=== PATIENT | female | born 1955 ===

== ENCOUNTER 2018-03-11 14:49 | Emergency (ER) | payer SELFPAY ==
[2018-03-11 14:50] VITALS: BMI 34.2
[2018-03-11 14:57] VITALS: RESP 16
[2018-03-11] MEDS ORDERED: Albuterol-Ipratrop 3 mg / 0.5 (3 ml) UD INH STA ×2 (15:29→17:44)
[2018-03-11] MEDS ORDERED: Metoprolol 1 mg/ml Inj IVP STA (15:41)
[2018-03-11 15:53] LABS: BASO # 0.1 K/uL (0.0-0.2); BASO % 0.9 % (0.0-2.0); EOS # 0.2 K/uL (0.0-0.7); EOS % 2.5 % (0.0-4.0); HEMOGLOBIN 14.8 g/dL (12.0-16.0); LYMPH # 1.9 K/uL (1.0-4.3); LYMPH % 27.2 % (20.0-40.0); MEAN CELL VOLUME 87.7 fl (81.0-99.0); MEAN CORPUSCULAR HEMOGLOBIN 30.5 pg (27.0-31.0); MEAN CORPUSCULAR HGB CONC 34.8 g/dL (33.0-37.0); MEAN PLATELET VOLUME 7.9 fl (7.2-11.7); MONO # 0.5 K/uL (0.0-0.8); MONO % 7.5 % (0.0-10.0); NEUT # 4.3 K/uL (1.8-7.0); NEUT % 61.9 % (50.0-75.0); NRBC % 0.1 % (0.0-0.0); RBC 4.84 Mil/uL (3.80-5.20); RED CELL DISTRIBUTION WIDTH 13.4 % (11.5-14.5); WHITE BLOOD COUNT 6.9 K/uL (4.8-10.8)
[2018-03-11] MEDS ORDERED: Albuterol-Ipratrop 3 mg / 0.5 (3 ml) UD ONE ×2 (15:56→18:00)
[2018-03-11 16:03] LABS: ALB/GLOB RATIO 0.9 (1.0-2.1); ALBUMIN 3.9 g/dL (3.5-5.0); ALT/SGPT 56 U/L (9-52); AST/SGOT 49 U/L (14-36); BLOOD UREA NITROGEN 20 mg/dl (7-17); CALCIUM 9.5 mg/dL (8.4-10.2); GFR AFRICAN-AMERICAN > 60; GFR NON-AFRICAN AMERICAN > 60
[2018-03-11 16:43] VITALS: O2SAT 99
[2018-03-11] MEDS ORDERED: Potassium Chloride 10 mEq ER Tab PO ONE (16:45)
[2018-03-11] MEDS: Sodium Chloride 0.9% 1,000 ML IV SCH ×4 (16:46→18:45)
--- NOTE | 2018-03-11 16:48 | RAD ---
HISTORY: r/o PNA COMPARISON: 01/07/2016 TECHNIQUE: Chest PA and lateral FINDINGS: LUNGS: No active pulmonary disease. PLEURA: No significant pleural effusion identified. No pneumothorax apparent. CARDIOVASCULAR: Normal. OSSEOUS STRUCTURES: No significant abnormalities. VISUALIZED UPPER ABDOMEN: Normal. OTHER FINDINGS: None. IMPRESSION: No active disease.
[2018-03-11] MEDS ORDERED: Potassium Chloride 10 mEq ER Tab PO SCH (18:00)
--- NOTE | 2018-03-11 18:56 | ED PDOC ---
History of Present Illness History of Present Illness: Pt [resemts tp tje ED complaining of congestion, fever and overall generalized bodyaches. Pt denies flu shot this year. Pt denies NVD and diaphoresis as well. Pt was hypertensive upon presentation but this resolved spontaneously without medical treatment or therapy HPI: Influenza Time Seen by Provider: 03/11/18 15:18 Chief Complaint: Flu-like Symptoms Chief Complaint (Provider): PNA Clinical History Per: Patient, Neurosurgical Nurse Have you had recent travel within the past 21 days to any of: No Onset/Duration Of Symptoms: Days (three) Symptoms include: fever, headache, bodyaches, cough, nasal congestion. denies: vomiting, diarrhea, syncope, chest pain, difficulty breathing Sick Contacts (Context): None Hx Influenza Vaccination: No Past Medical History Reviewed: Historical Data, Nursing Documentation, Vital Signs Vital Signs: Last Vital Signs Temp 98.5 F 03/11/18 14:55 Pulse 77 03/11/18 15:45 Resp 16 03/11/18 16:42 BP 137/99 H 03/11/18 16:42 Pulse Ox 99 03/11/18 16:42 - Medical History PMH: HTN Denies: Chronic Kidney Disease - Surgical History Surgical History: Appendectomy, Cholecystectomy, Hernia Repair - Family History Family History: States: Unknown Family Hx - Immunization History Hx Tetanus Toxoid Vaccination: No Hx Influenza Vaccination: No Hx Pneumococcal Vaccination: No - Home Medications Home Medications: Ambulatory Orders Medication Instructions Recorded Lisinopril/Hydrochlorothiazide 1 tab PO DAILY #30 tablet 01/08/16 [Lisinopril-Hctz 20-25 mg Tab] Oseltamivir [Tamiflu Cap] 75 mg PO DAILY #0 cap 01/08/16 Albuterol/Ipratropium [Duoneb 3 3 ml IH TID #30 neb 03/11/18 MG/3 Ml-0.5 MG/3 Ml 3 Ml] Nebulizer [Aeroeclipse II] 1 each MC PRN PRN #1 each 03/11/18 levoFLOXacin [Levaquin] 750 mg PO DAILY #7 tab 03/11/18 - Allergies Allergies/Adverse Reactions: Allergies Allergy/AdvReac Type Severity Reaction Status Date / Time No Known Allergies Allergy Verified 01/07/16 17:52 Review of Systems ROS Statement: Except As Marked, All Systems Reviewed And Found Negative Constitutional: Positive for: Fever ENT: Positive for: Nose Discharge, Nose Congestion Respiratory: Positive for: Cough, Wheezing Physical Exam - Reviewed Nursing Documentation Reviewed: Yes Vital Signs Reviewed: Yes - Physical Exam Appears: Positive for: Well, Uncomfortable Head Exam: Positive for: ATRAUMATIC, NORMAL INSPECTION, NORMOCEPHALIC ENT: Positive for: Pharynx Is (nonerythematous; without tonsilar exudate or uvular edema). Negative for: Pharyngeal Erythema, Tonsillar Exudate, Tonsillar Swelling Neck: Positive for: Normal, Painless ROM, Supple Cardiovascular/Chest: Positive for: Regular Rate, Rhythm, Chest Non Tender. Negative for: Edema, Gallop, Murmur, Bradycardia, Tachycardia Respiratory: Positive for: Normal Breath Sounds, Wheezing (lowre right lobe). Negative for: Decreased Breath Sounds Pulses-Carotid (L): 2+ Pulses-Carotid (R): 2+ Pulses-Radial (L): 2+ Pulses-Radial (R): 2+ Medical Decision Making Medical Decision Making: R/O PNA CXR shows cloudiness at lower right lobe which is clinically correlated radiology indicates no PNA dx clinical case duoneb and decadron with fluids in ED medicated with duoneb and levoquin at home - Laboratory Results Result Diagrams: 03/11/18 15:46 03/11/18 15:46 - ECG O2 Sat by Pulse Oximetry: 99 Disposition - Clinical Impression Clinical Impression: Pneumonia - Patient ED Disposition Is Patient to be Admitted: No Doctor Will See Patient In The: Office Counseled Patient/Family Regarding: Diagnosis, Need For Followup, Rx Given - Disposition Referrals: formerly [facility] [Outside] Disposition: Routine/Home Disposition Time: 19:01 Condition: STABLE Prescriptions: Albuterol/Ipratropium [Duoneb 3 MG/3 Ml-0.5 MG/3 Ml 3 Ml] 3 ml IH TID #30 neb levoFLOXacin [Levaquin] 750 mg PO DAILY #7 tab Nebulizer [Aeroeclipse II] 1 each MC PRN PRN #1 each PRN Reason: Other Instructions: Pneumonia in Adults, Pneumonia, Adult (DC), Community-Acquired Pneumonia in Adults Print Language: [place]
[2018-03-11 19:11] VITALS: BP 155/89; PULSE 75; TEMP 98.1
[2018-03-12] MEDS ORDERED: Potassium Chloride 10 mEq ER Tab PO SCH (09:00)
== END 2018-03-11 19:12 | disposition home or self-care (01) ==
LOC: H.ER 14:49
DX: J18.9 Pneumonia, unspecified organism (principal); I10 Essential (primary) hypertension
CPT/HCPCS: 71046; 80053; 85025; 87804; 96361; 96374; 99283; J1100; J7040

== ENCOUNTER 2018-04-09 06:53 | Emergency (ER) | payer SELFPAY ==
[2018-04-09 07:15] VITALS: BMI 29.9
[2018-04-09 07:26] VITALS: O2SAT 98
--- NOTE | 2018-04-09 07:30 | ED PDOC ---
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 Denies weakness, numbness, redness or fever. Hip, Ankle and foot nonpainful. Past Medical History Reviewed: Historical Data, Nursing Documentation, Vital Signs Vital Signs: Last Vital Signs Temp 98 F 04/09/18 07:20 Pulse 78 04/09/18 07:20 Resp 18 04/09/18 07:20 BP 224/124 H 04/09/18 07:20 Pulse Ox 98 04/09/18 07:20 - Medical History PMH: HTN, Hypercholesterolemia Denies: Chronic Kidney Disease - Surgical History Surgical History: Appendectomy, Cholecystectomy, Hernia Repair, Tonsillectomy Other surgeries: R shoulder, no prior sx on knees - Family History Family History: States: Unknown Family Hx - Living Arrangements Living Arrangements: With Family - Social History Current smoker - smoking cessation education provided: No - Immunization History Hx Tetanus Toxoid Vaccination: No Hx Influenza Vaccination: No Hx Pneumococcal Vaccination: No - Home Medications Home Medications: Ambulatory Orders Medication Instructions Recorded Lisinopril/Hydrochlorothiazide 1 tab PO DAILY #30 tablet 01/08/16 [Lisinopril-Hctz 20-25 mg Tab] Oseltamivir [Tamiflu Cap] 75 mg PO DAILY #0 cap 01/08/16 Albuterol/Ipratropium [Duoneb 3 3 ml IH TID #30 neb 03/11/18 MG/3 Ml-0.5 MG/3 Ml 3 Ml] Nebulizer [Aeroeclipse II] 1 each MC PRN PRN #1 each 03/11/18 levoFLOXacin [Levaquin] 750 mg PO DAILY #7 tab 03/11/18 Naproxen [Naprosyn] 500 mg PO BID PRN #14 tablet 04/09/18 traMADol [Ultram] 50 mg PO TID PRN #12 tab 04/09/18 - Allergies Allergies/Adverse Reactions: Allergies Allergy/AdvReac Type Severity Reaction Status Date / Time No Known Allergies Allergy Verified 01/07/16 17:52 Review of Systems Constitutional: Negative for: Fever Cardiovascular: Negative for: Chest Pain Gastrointestinal: Negative for: Abdominal Pain Genitourinary Female: Negative for: Dysuria Musculoskeletal: Positive for: Leg Pain. Negative for: Neck Pain, Shoulder Pain , Arm Pain, Back Pain, Hand Pain, Foot Pain Skin: Negative for: Rash, Lesions, Jaundice Neurological: Negative for: Weakness, Numbness, Altered Mental Status Psych: Negative for: Suicidal ideation Physical Exam - Reviewed Nursing Documentation Reviewed: Yes Vital Signs Reviewed: Yes - Physical Exam Appears: Positive for: Well, Non-toxic Head Exam: Positive for: ATRAUMATIC Skin: Positive for: Normal Color, Warm, Dry Respiratory: Negative for: Respiratory Distress Extremity: Positive for: Tenderness (mild tenderness R knee no edema, no erythema or warmth, normal ROM ankle and foot) - ECG O2 Sat by Pulse Oximetry: 98 Medical Decision Making Medical Decision Making: check XRay and US r/o DVT Toradol ordered for pain Time: 09:01 Right Knee X-Ray FINDINGS: BONES: No acute fracture dislocation identified. No destructive bony lesion demonstrated. Heterotopic calcification or possibly chronic avulsion or chip fractures noted in the lateral view of the posterior knee. JOINTS: No subluxation or dislocation. Joint space narrowing in all 3 compartments is compatible with degenerative joint disease. JOINT EFFUSION: Trace suprapatellar bursa effusion noted. OTHER FINDINGS: Nonspecific reticular changes seen the inferomedial right knee subcutaneous soft tissues potentially reflecting recent trauma or chronic residual from prior infectious or inflammatory process. IMPRESSION: No acute fracture, subluxation or dislocation right knee. [id number] degenerative changes seen as discussed above as well as a knee minimal suprapatellar bursa effusion. Nonspecific soft tissue changes seen the subcutaneous fat of inferomedial right knee potentially as a chronic finding as there is no dermal thickening appreciable. Please see limited discussion above. 09:42 As per RN, Pt is still in pain. Percocet 5/325 mg Tab ordered. Time: 10:26 Duplex Lower Extremity Vein Ultrasound FINDINGS: COMMON FEMORAL VEIN: Unremarkable. SUPERFICIAL FEMORAL VEIN: Unremarkable. POPLITEAL VEIN: Unremarkable. POSTERIOR TIBIAL VEIN: Unremarkable. OTHER FINDINGS: None. IMPRESSION: No interval sonographic evidence of deep venous thrombosis in the right lower extremity. Time: 10:21 CT scan of the right knee ordered for severe pain with ambulation. r/o tibial plateau fracture Accession No. : [id number] Patient Name / ID : PANTERA CORREA / [id number] Exam Date : 04/09/2018 12:23:36 ( Addendum_Approved ) Study Comment : Sex / Age : F / 62Y Creator : Efe Govea MD Dictator : Assistant Scientist : Professor Of Radiology : Efe Govea MD Approver2 : Report Date : 04/09/2018 13:20:41 My Comment : ADDENDUM: There is a typographical error in the joint section of this report. This states: Left Hip Joint move and Should indicate: Right Knee [ Addendum Report Added by Efe Govea MD at 04/09/2018 14:14:00 ] PROCEDURE: CT of the right knee HISTORY: Right knee pain unable to ambulate effectively COMPARISON: Comparison made with radiographs right knee obtained earlier same day TECHNIQUE: Contiguous helical/ transaxial images of the right knee were obtained. Coronal and sagittal reformats were generated. This CT exam was performed using one or more of the following dose reduction techniques: Automated exposure control, adjustment of the mA and/or kV according to patient size, and/or use of iterative reconstruction technique. . FINDINGS: BONES: No evidence of acute displaced fracture nor dislocation. . No focal lesion. Femoral head maintains normal contour. LEFT HIP JOINT: . There is mild medial joint space narrowing with minor subchondral sclerosis tibial plateau. . Very tiny posterior patellar osteophytes. Tiny anterior superior patella enthesophyte. SOFT TISSUES: There is a tiny joint effusion. . . No evidence of popliteal cyst. . Note also made of a subcutaneous varicosities. IMPRESSION: No evidence of acute fractures. . Minor degenerative osteoarthritis as described. Left Tiny joint effusion Subcutaneous varicosities are present. Given knee immbolizer and crutch training Followup FP clinic for ortho referral Disposition - Clinical Impression Clinical Impression: Knee pain - Patient ED Disposition Is Patient to be Admitted: No Counseled Patient/Family Regarding: Studies Performed, Diagnosis, Need For Followup, Rx Given - Disposition Referrals: [facility] [Outside] Disposition: Routine/Home Disposition Time: 13:30 Condition: STABLE Additional Instructions: Followup with clinic for possible referral to orthopedics. Take pain medicine as directed. MADELINE MOTT, thank you for letting us take care of you today. Your provider was Tejas Wilkins III, DO and you were treated for RT KNEE PAIN. The emergency medical care you received today was directed at your acute symptoms. If you were prescribed any medication, please fill it and take as directed. It may take several days for your symptoms to resolve. Return to the Emergency Department if your symptoms worsen, do not improve, or if you have any other problems. Please contact your doctor or call one of the physicians/clinics you have been referred to that are listed on the Patient Visit Information form that is included in your discharge packet. Bring any paperwork you were given at discharge with you along with any medications you are taking to your follow up visit. Our treatment cannot replace ongoing medical care by a primary care provider outside of the emergency department. Thank you for allowing the [facility] team to be part of your care today. If you had an X-Ray or CT scan: A Radiologist will review the ED reading if any change in treatment is needed we will contact you. If you had a blood, urine, or wound culture: It will take several days for the results, if any change in treatment is needed we will contact you. If you had an STI test: It will take 48 hours for the results. Please call after 1 week if you have not heard back. Prescriptions: Naproxen [Naprosyn] 500 mg PO BID PRN #14 tablet PRN Reason: Pain, Moderate (4-7) traMADol [Ultram] 50 mg PO TID PRN #12 tab PRN Reason: Pain, Moderate (4-7) Instructions: Knee Pain (DC) Forms: [employer] ([place]) Print Language: PERSIAN
--- NOTE | 2018-04-09 09:03 | RAD ---
PROCEDURE: Right Knee Radiographs. HISTORY: R leg/ knee pain COMPARISON: None. FINDINGS: BONES: No acute fracture dislocation identified. No destructive bony lesion demonstrated. Heterotopic calcification or possibly chronic avulsion or chip fractures noted in the lateral view of the posterior knee. JOINTS: No subluxation or dislocation. Joint space narrowing in all 3 compartments is compatible with degenerative joint disease. JOINT EFFUSION: Trace suprapatellar bursa effusion noted. OTHER FINDINGS: Nonspecific reticular changes seen the inferomedial right knee subcutaneous soft tissues potentially reflecting recent trauma or chronic residual from prior infectious or inflammatory process. IMPRESSION: No acute fracture, subluxation or dislocation right knee. Pgva-[id number] degenerative changes seen as discussed above as well as a knee minimal suprapatellar bursa effusion. Nonspecific soft tissue changes seen the subcutaneous fat of inferomedial right knee potentially as a chronic finding as there is no dermal thickening appreciable. Please see limited discussion above.
[2018-04-09] MEDS ORDERED: Oxycodone/Acetaminophen 5/325 mg Tab ONE (09:45)
[2018-04-09] MEDS ORDERED: Oxycodone/Acetaminophen 5/325 mg Tab PO STA (09:56)
--- NOTE | 2018-04-09 10:27 | US ---
PROCEDURE: Right lower extremity venous duplex Doppler. HISTORY: R leg pain COMPARISON: Bilateral lower extremity venous ultrasound. TECHNIQUE: Common femoral, superficial femoral, popliteal and posterior tibial veins were evaluated. Flow was assessed with color Doppler, compressibility, assessment of phasic flow and augmentation response. FINDINGS: COMMON FEMORAL VEIN: Unremarkable. SUPERFICIAL FEMORAL VEIN: Unremarkable. POPLITEAL VEIN: Unremarkable. POSTERIOR TIBIAL VEIN: Unremarkable. OTHER FINDINGS: None. IMPRESSION: No interval sonographic evidence of deep venous thrombosis in the right lower extremity.
--- NOTE | 2018-04-09 13:22 | CT ---
PROCEDURE: CT of the right knee HISTORY: Right knee pain unable to ambulate effectively COMPARISON: Comparison made with radiographs right knee obtained earlier same day TECHNIQUE: Contiguous helical/ transaxial images of the right knee were obtained. Coronal and sagittal reformats were generated. This CT exam was performed using one or more of the following dose reduction techniques: Automated exposure control, adjustment of the mA and/or kV according to patient size, and/or use of iterative reconstruction technique. . FINDINGS: BONES: No evidence of acute displaced fracture nor dislocation. . No focal lesion. Femoral head maintains normal contour. LEFT HIP JOINT: . There is mild medial joint space narrowing with minor subchondral sclerosis tibial plateau. . Very tiny posterior patellar osteophytes. Tiny anterior superior patella enthesophyte. SOFT TISSUES: There is a tiny joint effusion. . . No evidence of popliteal cyst. . Note also made of a subcutaneous varicosities. IMPRESSION: No evidence of acute fractures. . Minor degenerative osteoarthritis as described. Left Tiny joint effusion Subcutaneous varicosities are present.
[2018-04-09 14:14] VITALS: PULSE 70
[2018-04-09 15:04] VITALS: BP 164/93; RESP 20; TEMP 98
== END 2018-04-09 15:06 | disposition home or self-care (01) ==
LOC: H.ER 06:53
DX: M25.561 Pain in right knee (principal); E78.00 Pure hypercholesterolemia, unspecified; I10 Essential (primary) hypertension
CPT/HCPCS: 29530; 73562; 73700; 93971; 96372; 99285; J1885

== ENCOUNTER 2018-06-22 10:45 | Day surgery (SDC) | payer SELFPAY ==
[2018-06-22 11:10] VITALS: BMI 33.4
--- NOTE | 2018-06-22 11:43 | CP.SDSHP ---
Same Day Surgery H & P - History Proposed Procedure: Left breana bunionectomy with internal fixation and lateral release. Pre-Op Diagnosis: Left foot hallux abducto valgus deformity - Allergies Allergies: Allergies No Known Allergies Allergy (Verified 06/22/18 11:14) - Current Medications Current Medications: Lisinopril - Physical Exam Mental Status: Alert & Oriented x3 - {Optional Preform as Required} Integument: WNL - Impression Impression: Pt was seen and examined in SDS. Pt NPO status was confirmed. All pre-op testing and clearance in chart. Pt has exhausted all conservative treatment at this time and is opting for surgical intervention. Pt was explained procedure and post-operative course. All pt's questions were answered to satisfaction. No guarantees were made. Pt understands all risks, benefits and complications of procedure. Pt will follow-up with Dr. Valderrama within 1 week of surgery - Date & Time Date: 06/22/18 Time: 12:34 Short Stay Discharge - Short Stay Discharge Admitting Diagnosis/Reason for Visit: M21.612 Disposition: HOME/ ROUTINE Referrals: Adrian Covarrubias MD [Primary Care Provider] - Follow-up: in podiatry clinic in 1 week Additional Instructions (Diet, Activity): -Patient in good/stable condition for discharge home -Pt to resume medications per medical reconciliation -Resume regular diet Please keep dressing clean, dry, & intact to surgical site -Use plastic bag over bandage for showering -Wear post op shoe at all times when ambulating -Call clinic if you see signs of infection (redness, swelling, malodor) -Please make an appointment to see Dr. Valderrama in clinic within 1 week for post- op check Progress Note/Discharge Note with Instructions: - Patient evaluated bedside in recovery s/p surgical procedure. - After surgical procedure patient in NAD - (+) Void, (+) Appetite - Capillary refill time <3s and NVSI intact. - Patient denies complaints at this time - Post operative instructions and plan of care explained to patient at length. - Pt. acknowledges understanding. - Patient stable for DC per podiatric surgery
--- NOTE | 2018-06-22 11:49 | CP.PCM.PN ---
Subjective - Date & Time of Evaluation Date of Evaluation: 06/22/18 Time of Evaluation: 11:44 - Subjective Subjective: 62 yo female seen in [facility] with PMhx of hypertension seen for preoperative evaluation of left bunionectomy with internal fixation. Patient states she was seen in podiatry clinic and booked for a surgery today for her left bunion. Patient admits to being NPO, last time patient ate was last night. Patient denies f/n/v/sob. Objective - Constitutional Appears: Well, Non-toxic, No Acute Distress - Head Exam Head Exam: ATRAUMATIC, NORMOCEPHALIC - Extremities Exam Additional comments: Left lower extremity exam focused: Vascular: Dp/PT 2/4, CFT <3 secs x5, TG warm to cool, erythema noted at medial aspect of first met head , no edema noted. Neuro: Protective sensation intact via ipswich / Derm: Erythema noted at the medial eminence of the first met head, no open lesions, no clinical signs of infection. Ortho: Pain with ROM of the 1st MPJ, tracking noted of the 1st MPJ, pain on palpation to the first met head. - Neurological Exam Neurological Exam: Alert, Awake, Oriented x3 - Psychiatric Exam Psychiatric exam: Normal Affect, Normal Mood - Skin Skin Exam: Normal Color Assessment and Plan - Assessment and Plan (Free Text) Assessment: 62 yo female seen in [facility] for perioperative evaluation. Plan: Pt was seen and examined in [facility] Pt NPO status was confirmed All pre-op testing and clearance in chart Pt has exhausted all conservative treatment at this time and is opting for surgical intervention Pt was explained procedure and post-operative course All pt's questions were answered to satisfaction No guarantees were made Pt understands all risks, benefits and complications of procedure Pt will follow-up with Dr. Valderrama within 1 week of surgery
[2018-06-22 11:55] VITALS: RESP 18
[2018-06-22] MEDS ORDERED: ceFAZolin 2 GM in Sodium Chloride 0.9% 100 ML IVPB ONE (11:59)
[2018-06-22] MEDS ORDERED: Lidocaine 1% Inj (20ml) IJ ONE (11:59)
[2018-06-22] MEDS ORDERED: Bupivacaine 0.25% Inj(30mL) IJ ONE (11:59)
[2018-06-22] MEDS ORDERED: Sodium Chloride 0.9% 1,000 ML IV SCH (12:00)
[2018-06-22 12:20] LABS: BLOOD UREA NITROGEN 15 mg/dl (7-17); CALCIUM 9.3 mg/dL (8.4-10.2); GFR NON-AFRICAN AMERICAN > 60
[2018-06-22] MEDS ORDERED: Lactated Ringer's 1,000 ML IV ONE (13:45)
[2018-06-22] MEDS ORDERED: Dexamethasone 4 mg/1 ml IM ONE (16:00)
[2018-06-22] MEDS ORDERED: Oxycodone/Acetaminophen 5/325 mg Tab PO PRN ×2 (16:11)
[2018-06-22] MEDS ORDERED: Dexamethasone 4 mg/1 ml IVP PRN (16:14)
[2018-06-22] MEDS ORDERED: HYDROmorphone 0.5 mg/0.5 ml ISec IVP PRN (16:14)
[2018-06-22] MEDS ORDERED: Lactated Ringer's 1,000 ML IV SCH (16:15)
--- NOTE | 2018-06-22 16:17 | PCM.SURG1 ---
Surgeon's Initial Post Op Note - Surgeon's Notes Surgeon: Dr. Valderrama, DPM Curb Attendant: Dr. Granados, PGY3, Dr. Guerra, PGY1 Type of Anesthesia: IV Sedation, Local Anesthesia Administered By: Dr. Akins Pre-Operative Diagnosis: Left Foot Hallux Abducto Valgus Operative Findings: see dictation. I: pre-operative: 20 cc 0.5% Marcaine plain. intra-operative: 1 cc 4mg Dexamethasone. M: two 2-0 16 mm screws, 0- Vicryl, 3-0 Monocryl Post-Operative Diagnosis: same Operation Performed: Mk bunionectomy of the Left Foot Specimen/Specimens Removed: none Estimated Blood Loss: EBL {In ML}: 1 Blood Products Given: N/A Drains Used: No Drains Post-Op Condition: Good Date of Surgery/Procedure: 06/22/18 Time of Surgery/Procedure: 16:18
--- NOTE | 2018-06-22 17:04 | RAD ---
Indication: s/p left foot bunionectomy Left foot radiographs Comparison: Left foot radiographs performed 04/27/18 Findings: Provided views of the right foot demonstrate evidence of recent 1st metatarsal osteotomy for bunionectomy with 2 cortical screws providing stabilization at the osteotomy. No significant callus formation is identified at this time. Soft tissue swelling. Subcutaneous emphysema. Impression: Evidence of recent bunionectomy involving the right foot with very little callus formation at this time.
[2018-06-22 17:29] VITALS: O2SAT 97
[2018-06-22 19:02] VITALS: BP 151/84; PULSE 82; TEMP 97.5
--- NOTE | 2018-06-29 07:57 | OP ---
PROCEDURE DATE: 06/22/2018 PREOPERATIVE DIAGNOSIS: Hallux abductor valgus deformity, left foot. POSTOPERATIVE DIAGNOSIS: Hallux abductor valgus deformity, left foot. PROCEDURE PERFORMED: Distal osteotomy of first metatarsal with lateral relief, left first metatarsophalangeal joint. SURGEON: Zoila Valderrama DPM. ACCESS CONTROL OFFICER: Iram Granados DPM, PGY-3; David Guerra DPM, PGY-1. ANESTHESIOLOGIST: Dr. Akins. ANESTHESIA: MAC and IV sedation with local injection. INDICATION: The patient is a 52-year-old female with the above-mentioned diagnosis. The patient was seen and treated by Dr. Valderrama in [facility] on outpatient basis where she has exhausted multiple forms of conservative treatment options. The patient needs surgical intervention at this time. All risks, benefits, and possible complications to the proposed procedure have been explained to the patient at length in the patient's [place] language of [place]. The patient verbalized understanding and wished to proceed. All questions were answered. No guarantees were given nor implied. Consent was signed and n.p.o. was confirmed prior to bringing the patient into the operating room. OPERATIVE PROCEDURE: The patient was brought into the operating room and placed on the operating room table in the supine position. A well-padded pneumatic ankle tourniquet was applied in a supramalleolar position to the patient's left ankle. Once IV sedation was achieved, a local injection consisting of 20 mL with a 1:1 mixture of 0.25% Marcaine plain with 2% Lidocaine plain was introduced via local block fashion to the patient's left forefoot. Once local anesthesia was achieved, the foot was then prepped and draped in the usual sterile manner and the procedure was begun. Distal osteotomy of first metatarsal with lateral release first metatarsophalangeal joint. Our attention was now directed to the medial aspect of the patient's first metatarsal head of the left foot and approximately 6 cm linear longitudinal incision was made at the medial aspect of the joint and ran parallel to the first metatarsal bone. The incision was then began to the subcutaneous tissue using sharp and blunt tissue dissection. Care was taken to identify, retract all vital neurovascular structures. All bleeders were cauterized and ligated as necessary. At that time, a McGlamry elevator was utilized and placed under the first metatarsal head in order to free the soft tissue at the level of the fibular sesamoid, which was then freed of soft tissue attachments proximally, laterally and distally. At this time, a lateral contracture present to the hallux. We are going to be reducing the sesamoid apparatus more corrected and medialized position. At this time, a linear elliptical capsulotomy was performed over the medial aspect of the first metatarsophalangeal joint with the central aspect of the capsule, removed and passed from the operative field. The periosteum and capsular structures were then carefully dissected free of the osseous attachment and reflected medially and laterally thus exposing the head of the first metatarsal as the operative site. Next utilizing oscillating bone saw, the dorsal and medial prominences were resected and passed from the operative field. All rough edges were then smoothed down with a rongeur and . At this time, our attention was then redirected to the medial aspect of the first metatarsal head osteotomy was created in the metaphyseal region of bone utilizing the oscillating bone saw. The apex of the osteotomy pointed distally with the arms pointing proximal plantarly and proximal dorsally. The dorsal arm was made longer in order to accommodate for internal fixation. Upon completion of the osteotomy, the capsular fragment was retracted and shifted laterally into a more corrected position and impacted upon the first metatarsal shaft. At this time, two 0.045 inch K-wires were driven from dorsal to plantar across the osteotomy site to serve as a temporary fixation. Following sequential removal of the K-wires and following standard AO principles and techniques, a 2.0 x 15 mm and a second 2.0 x 15 mm cortical screw (Synthes) were inserted and placed across the osteotomy site with excellent compression achieved. The remaining K-wire was then removed. Attention was then directed to the remaining medial bone shaft, which was then resected utilizing the oscillating bone saw and passed from the operating site. Correction of the deformity was accessed at this time and was noted to be excellent. The wound was then flushed with copious amounts of sterile normal saline solution. The capsular structures were then using 2-0 and 3-0 Vicryl. The subcuticular tissue was then reapproximated using 4-0 Monocryl in a continuing running suture technique. Postoperative bandages included Steri-Strips, Dermabond, Adaptic, 4 x 4, gauze, and Webril cast padding in addition to an Nathaniel bandage. Of note prior to applying the dressing, an additional 10 mL of 0.25% Marcaine plain with 1 mL of dexamethasone 4 mg was introduced into the surgical site postoperatively. POSTOPERATIVE CONDITION: The patient tolerated the procedure and anesthesia well with no apparent complications or complaints. The patient was escorted into the recovery room from the OR with vital signs stable and neurovascular statu intact. The patient will be partial weightbearing in a CAM boot. The patient will follow up with Dr. Valderrama in the clinic within one week. Iram Granados DPM Zoila Valderrama DPM
== END 2018-06-22 19:15 | disposition home or self-care (01) ==
LOC: H.OPSURG 10:45
PROVIDERS: ATTEND Podiatrist Primary Podiatric Medicine
DX: M20.12 Hallux valgus (acquired), left foot (principal); I10 Essential (primary) hypertension
CPT/HCPCS: 28296; 36415; 73630; 80048; 88304; 97161; C1713; G8978; G8979; G8980; J0690; J1100; J2405; J7030; J7120

== ENCOUNTER 2018-11-13 11:21 | Emergency (ER) | payer SELFPAY ==
[2018-11-13 11:21] VITALS: BMI 33.4
[2018-11-13 11:35] VITALS: RESP 16; TEMP 98.9; O2SAT 99
[2018-11-13] MEDS ORDERED: Sodium Chloride 0.9% 1,000 ML IV STA (11:50)
--- NOTE | 2018-11-13 12:23 | ED PDOC ---
History of Present Illness History of Present Illness: 63yo female with history of hypertension, comes to ER for evaluation of sore throat, congestion and dizziness x 5 days. Patient states she has been taking dayquil as well as left over ampicillin with no relief of symptoms. She also reports associated chills and bodyaches. Patient denies any chest pain, shortness of breath, abdominal pain, nausea, vomiting and diarrhea. She also denies any weakness and numbness. No additional complaints. PMD: Dr. Mejia HPI: Influenza Time Seen by Provider: 11/13/18 11:39 Chief Complaint: Flu-like Symptoms Chief Complaint (Provider): Flu like symptoms History Per: Patient Exam Limitations: no limitations Onset/Duration Of Symptoms: Days Symptoms include: bodyaches, sore throat, nasal congestion Hx Influenza Vaccination: No Past Medical History Reviewed: Historical Data, Nursing Documentation, Vital Signs Vital Signs: Last Vital Signs Temp 98.9 F 11/13/18 11:31 Pulse 77 11/13/18 11:31 Resp 16 11/13/18 11:31 BP 151/95 H 11/13/18 11:58 Pulse Ox 99 11/13/18 11:31 - Medical History PMH: HTN Denies: Chronic Kidney Disease - Surgical History Surgical History: Appendectomy, Cholecystectomy, Hernia Repair, Tonsillectomy - Family History Family History: States: Unknown Family Hx - Social History Alcohol: None Drugs: Denies - Immunization History Hx Tetanus Toxoid Vaccination: No Hx Influenza Vaccination: No Hx Pneumococcal Vaccination: No - Home Medications Home Medications: Ambulatory Orders Medication Instructions Recorded Aspirin [Adult Aspirin] 81 mg PO DAILY 05/09/18 Lisinopril/Hydrochlorothiazide 1 tab PO DAILY 06/22/18 [Lisinopril-Hydrochlorothiazide 25 mg-20 mg] oxyCODONE/Acetaminophen [Percocet 1 tab PO Q6 PRN 06/22/18 5/325 mg Tab] Ibuprofen [Motrin] 600 mg PO TID 7 Days tab 11/13/18 Oseltamivir Phosphate [Tamiflu] 75 mg PO BID 5 Days capsule 11/13/18 - Allergies Allergies/Adverse Reactions: Allergies Allergy/AdvReac Type Severity Reaction Status Date / Time No Known Allergies Allergy Verified 11/13/18 11:28 Review of Systems ROS Statement: Except As Marked, All Systems Reviewed And Found Negative Constitutional: Positive for: Fever, Chills, Other (bodyaches) ENT: Positive for: Nose Congestion, Throat Pain Respiratory: Negative for: Cough Gastrointestinal: Negative for: Nausea, Vomiting, Diarrhea Neurological: Positive for: Dizziness. Negative for: Headache Physical Exam - Reviewed Nursing Documentation Reviewed: Yes Vital Signs Reviewed: Yes - Physical Exam Appears: Positive for: Non-toxic, No Acute Distress Head Exam: Positive for: ATRAUMATIC, NORMAL INSPECTION, NORMOCEPHALIC Skin: Positive for: Normal Color Eye Exam: Positive for: Normal appearance ENT: Positive for: Nasal Congestion. Negative for: Pharyngeal Erythema Neck: Positive for: Normal, Painless ROM, Supple Cardiovascular/Chest: Positive for: Regular Rate, Rhythm Respiratory: Positive for: Normal Breath Sounds Gastrointestinal/Abdominal: Positive for: Normal Exam, Soft. Negative for: Tenderness Back: Positive for: Normal Inspection. Negative for: L CVA Tenderness, R CVA Tenderness Extremity: Positive for: Normal ROM. Negative for: Tenderness, Pedal Edema Neurologic/Psych: Positive for: Alert, seed sales manager II-XII, Oriented. Negative for: Mo tor/Sensory Deficits, Gait, Aphasia, Facial Droop Medical Decision Making Medical Decision Making: Impression: 63yo female with flu like symptoms Plan: -- Motrin 600mg PO -- Rapid flu 1317 Rapid flu negative Scribe Attestation: Documented by Karolina Chiu acting as a scribe for Basil Vela MD. Provider Attestation: All medical record entries made by the Scribe were at my direction and personally dictated by me. I have reviewed the chart and agree that the record accurately reflects my personal performance of the history, physical exam, medical decision making, and the department course for this patient. I have also personally directed, reviewed, and agree with the discharge instructions and disposition. - ECG ECG: Positive for: Interpreted By Me, Viewed By Me ECG Rhythm: Positive for: Normal QRS, Normal ST Segment, Sinus Rhythm O2 Sat by Pulse Oximetry: 99 Pulse Ox Interpretation: Normal - Progress ED Course And Treament: 1352: Stable. AAOx3. Pain free. Tolerated PO. No dizziness, weakness. Fu with pcp. Ambulated with no issues. Disposition - Clinical Impression Clinical Impression: Influenza-like symptoms - Patient ED Disposition Is Patient to be Admitted: No Counseled Patient/Family Regarding: Studies Performed, Diagnosis, Need For Followup, Rx Given - Disposition Referrals: [facility] [Outside] - 11/14/18 Disposition: Routine/Home Disposition Time: 13:53 Condition: STABLE Additional Instructions: Return if not better in 3 days. Prescriptions: Ibuprofen [Motrin] 600 mg PO TID 7 Days tab Oseltamivir Phosphate [Tamiflu] 75 mg PO BID 5 Days capsule Instructions: Viral Upper Respiratory Infection, Adult (DC) Print Language: R[place]
[2018-11-13 14:19] VITALS: BP 145/90; PULSE 75
--- NOTE | 2018-11-13 19:29 | CARD ---
APPROVED REPORT Date of service: 11/13/2018 EKG Measurement Heart [id number] <Conclusion> Sinus bradycardia Otherwise normal ECG
== END 2018-11-13 14:10 | disposition home or self-care (01) ==
LOC: H.ER 11:21
DX: J11.1 Influenza due to unidentified influenza virus with other respiratory manifestations (principal); I10 Essential (primary) hypertension; Z79.82 Long term (current) use of aspirin